=== PATIENT | female | born 1940 | race Caucasian/White ===

== ENCOUNTER → 2017-02-03 | Outpatient (CLI) | payer MEDICARE ==
[2017-02-03 13:43] LABS: BASO % 0.4 % (0.0-1.0); EOS # 0.2 K/mm3 (0.0-0.50); EOS % 4.2 % (0.0-3.0); LYMPH # 1.1 K/mm3 (1.5-4.5); LYMPH % 19.2 % (24.0-44.0); MEAN CORPUSCULAR HGB CONC 34.6 g/dl (32.0-36.5); MEAN CORPUSCULAR VOLUME 89.7 fl (80.0-96.0); MONO # 0.3 K/mm3 (0.0-0.8); MONO % 5.4 % (0.0-5.0); NEUTROPHILS # 3.9 K/mm3 (1.8-7.7); NEUTROPHILS % 68.9 % (36.0-66.0); RED CELL DISTRIBUTION WIDTH 12.4 % (11.5-14.5); WHITE BLOOD COUNT 5.6 K/mm3 (4.0-10.0)
[2017-02-03 14:04] LABS: ALBUMIN/GLOBULIN RATIO 1.05 (1.00-1.93); ALKALINE PHOSPHATASE 57 U/L (45-117); ALT/SGPT 18 U/L (12-78); ANION GAP 8 MEQ/L (8-16); AST/SGOT 18 U/L (15-37); BILIRUBIN,TOTAL 0.5 MG/DL (0.2-1.0); BLOOD UREA NITROGEN 24 MG/DL (7-18); CALCIUM LEVEL 9.5 MG/DL (8.8-10.2); CARBON DIOXIDE LEVEL 27 MEQ/L (21-32); CHLORIDE LEVEL 107 MEQ/L (98-107); CHOLESTEROL LEVEL 243 MG/DL (<200); CREATININE FOR GFR 1.38 MG/DL (0.55-1.02); FERRITIN 82 NG/ML (8-252); GLOMERULAR FILTRATION RATE 39.8 (>39); GLUCOSE, FASTING 128 MG/DL (83-110); POTASSIUM SERUM 3.9 MEQ/L (3.5-5.1); SODIUM LEVEL 142 MEQ/L (136-145); THYROXINE (T4) 10.2 UG/DL (4.5-12.0); TOTAL PROTEIN 7.8 GM/DL (6.4-8.2); TRIGLYCERIDES LEVEL 198 MG/DL (<150)
[2017-02-04 14:56] LABS: ALBUMIN 4.63 GM/DL (3.29-5.55); ALBUMIN % 59.3 % (55.8-66.1); GAMMA GLOBULIN % 16.1 % (11.1-18.8)
[2017-02-06 00:07] LABS: Lyme Disease IgG Ab 18 kDa Ban Present (.); Lyme Disease IgG Ab 23 kDa Ban Present (.); Lyme Disease IgG Ab 28 kDa Ban Absent (.); Lyme Disease IgG Ab 30 kDa Ban Absent (.); Lyme Disease IgG Ab 39 kDa Ban Present (.); Lyme Disease IgG Ab 41 kDa Ban Present (.); Lyme Disease IgG Ab 45 kDa Ban Absent (.); Lyme Disease IgG Ab 58 kDa Ban Absent (.); Lyme Disease IgG Ab 66 kDa Ban Absent (.); Lyme Disease IgG Ab 93 kDa Ban Absent (.); Lyme Disease IgG West Blot Int Negative (.); Lyme Disease IgG/IgM Antibodie 1.51 ISR (0.00-0.90); Lyme Disease IgM Ab 23 kDa Ban Present (.); Lyme Disease IgM Ab 39 kDa Ban Absent (.); Lyme Disease IgM Ab 41 kDa Ban Absent (.); Lyme Disease IgM Ab Quantitati 1.16 index (0.00-0.79); Lyme Disease IgM West Blot Int Negative (.); T3 RESIN UPTAKE 28 % (24-39)
== END ==
LOC: M WUC 08:30
PROVIDERS: ATTEND Physician Assistant Medical
DX: E11.9 Type 2 diabetes mellitus without complications (principal); R53.83 Other fatigue; Z79.01 Long term (current) use of anticoagulants

== ENCOUNTER → 2017-05-05 | Outpatient (CLI) | payer MEDICARE ==
[2017-05-05 13:01] LABS: BASO # 0.1 10^3/uL (0.0-0.2); BASO % 1.2 % (0.0-1.0); EOS # 0.2 10^3/uL (0.0-0.50); EOS % 3.3 % (0.0-3.0); IMMATURE GRANULOCYTE % 0.5 % (0-0); LYMPH # 1.3 10^3/uL (1.5-4.5); LYMPH % 23.1 % (24.0-44.0); MEAN CORPUSCULAR HEMOGLOBIN 30.3 pg (27.0-33.0); MEAN CORPUSCULAR HGB CONC 33.7 g/dl (32.0-36.5); MONO # 0.5 10^3/uL (0.0-0.8); MONO % 8.9 % (0.0-5.0); NEUTROPHILS # 3.6 10^3/uL (1.8-7.7); PLATELET COUNT, AUTOMATED 222 10^3/uL (150-450); WHITE BLOOD COUNT 5.8 10^3/uL (4.0-10.0)
[2017-05-05 13:34] LABS: ALBUMIN 4.1 GM/DL (3.2-5.2); ALBUMIN/GLOBULIN RATIO 1.05 (1.00-1.93); BILIRUBIN,TOTAL 0.4 MG/DL (0.2-1.0); CALCIUM LEVEL 9.6 MG/DL (8.8-10.2); CREATININE FOR GFR 1.56 MG/DL (0.55-1.02); GLOMERULAR FILTRATION RATE 34.4 (>39); POTASSIUM SERUM 4.3 MEQ/L (3.5-5.1)
== END ==
LOC: M WUC 08:35
PROVIDERS: ATTEND Physician Assistant Medical
DX: E11.9 Type 2 diabetes mellitus without complications (principal)

== ENCOUNTER → 2017-07-31 | Outpatient (CLI) | payer MEDICARE ==
[2017-07-31 14:25] LABS: ALBUMIN 4.1 GM/DL (3.2-5.2); ALBUMIN/GLOBULIN RATIO 1.05 (1.00-1.93); ALKALINE PHOSPHATASE 73 U/L (45-117); ALT/SGPT 28 U/L (12-78); ANION GAP 8 MEQ/L (8-16); AST/SGOT 22 U/L (7-37); BILIRUBIN,TOTAL 0.6 MG/DL (0.2-1.0); BLOOD UREA NITROGEN 20 MG/DL (7-18); CALCIUM LEVEL 9.6 MG/DL (8.8-10.2); CARBON DIOXIDE LEVEL 30 MEQ/L (21-32); CHLORIDE LEVEL 104 MEQ/L (98-107); CHOLESTEROL LEVEL 220 MG/DL (<200); CHOLESTEROL RISK RATIO 3.859 (<5); CREATININE FOR GFR 1.29 MG/DL (0.55-1.30); GLOMERULAR FILTRATION RATE 42.9 (>39); GLUCOSE, FASTING 117 MG/DL (70-100); HDL CHOLESTEROL 57 MG/DL (>40); NON-HDL-C 163 MG/DL; POTASSIUM SERUM 3.9 MEQ/L (3.5-5.1); SODIUM LEVEL 142 MEQ/L (136-145); TRIGLYCERIDES LEVEL 145 MG/DL (<150)
== END ==
LOC: M WUC 08:41
DX: E78.2 Mixed hyperlipidemia (principal)
CPT/HCPCS: 80053

== ENCOUNTER → 2017-12-25 | Outpatient (CLI) | payer MEDICARE ==
[2017-12-25 13:09] LABS: BASO # 0.1 10^3/uL (0.0-0.2); BASO % 1.1 % (0.0-1.0); EOS # 0.2 10^3/uL (0.0-0.50); EOS % 3.7 % (0.0-3.0); HEMATOCRIT 37.7 % (36.0-47.0); HEMOGLOBIN 13.1 g/dl (12.0-15.5); IMMATURE GRANULOCYTE % 0.2 % (0-3.0); LYMPH # 1.2 10^3/uL (1.5-4.5); LYMPH % 22.4 % (24.0-44.0); MEAN CORPUSCULAR HEMOGLOBIN 30.8 pg (27.0-33.0); MEAN CORPUSCULAR HGB CONC 34.7 g/dl (32.0-36.5); MEAN CORPUSCULAR VOLUME 88.5 fl (80.0-96.0); MONO # 0.6 10^3/uL (0.0-0.8); MONO % 11.4 % (0.0-5.0); NEUTROPHILS # 3.3 10^3/uL (1.8-7.7); NEUTROPHILS % 61.2 % (36.0-66.0); PLATELET COUNT, AUTOMATED 198 10^3/uL (150-450); RED BLOOD COUNT 4.26 10^6/uL (4.00-5.40); RED CELL DISTRIBUTION WIDTH 11.9 % (11.5-14.5); WHITE BLOOD COUNT 5.4 10^3/uL (4.0-10.0)
[2017-12-25 13:24] LABS: TOTAL 25(OH) VITAMIN D 22.5 NG/ML (30.0-100.0)
[2017-12-25 13:27] LABS: ALBUMIN/GLOBULIN RATIO 1.03 (1.00-1.93); ALKALINE PHOSPHATASE 65 U/L (45-117); ALT/SGPT 22 U/L (12-78); ANION GAP 7 MEQ/L (8-16); AST/SGOT 19 U/L (7-37); BILIRUBIN,TOTAL 0.4 MG/DL (0.2-1.0); BLOOD UREA NITROGEN 28 MG/DL (7-18); CALCIUM LEVEL 9.2 MG/DL (8.8-10.2); CARBON DIOXIDE LEVEL 28 MEQ/L (21-32); CHLORIDE LEVEL 103 MEQ/L (98-107); CHOLESTEROL LEVEL 197 MG/DL (<200); CHOLESTEROL RISK RATIO 4.804 (<5); CREATININE FOR GFR 1.71 MG/DL (0.55-1.30); FREE T4 1.05 NG/DL (0.76-1.46); GLUCOSE, FASTING 133 MG/DL (70-100); HDL CHOLESTEROL 41 MG/DL (>40); LDL CHOLESTEROL 99.8 MG/DL (<100); NON-HDL-C 156 MG/DL; POTASSIUM SERUM 4.3 MEQ/L (3.5-5.1); SODIUM LEVEL 138 MEQ/L (136-145); TOTAL PROTEIN 7.9 GM/DL (6.4-8.2); TRIGLYCERIDES LEVEL 281 MG/DL (<150)
[2017-12-25 13:46] LABS: ESTIMATED AVERAGE GLUCOSE 160 MG/DL (60-110); HEMOGLOBIN A1c 7.2 %
== END ==
LOC: M WUC 08:58
DX: I10 Essential (primary) hypertension (principal); E55.9 Vitamin D deficiency, unspecified; E78.00 Pure hypercholesterolemia, unspecified; Z79.899 Other long term (current) drug therapy
CPT/HCPCS: 84443

== ENCOUNTER → 2018-03-27 | Outpatient (CLI) | payer MEDICARE ==
[2018-03-27 09:07] LABS: BASO % 0.6 % (0.0-1.0); EOS # 0.2 10^3/uL (0.0-0.50); EOS % 3.8 % (0.0-3.0); HEMATOCRIT 38.4 % (36.0-47.0); HEMOGLOBIN 13.4 g/dl (12.0-15.5); IMMATURE GRANULOCYTE % 0.3 % (0-3.0); LYMPH # 1.3 10^3/uL (1.5-4.5); LYMPH % 21.1 % (24.0-44.0); MEAN CORPUSCULAR HEMOGLOBIN 31.1 pg (27.0-33.0); MEAN CORPUSCULAR HGB CONC 34.9 g/dl (32.0-36.5); MEAN CORPUSCULAR VOLUME 89.1 fl (80.0-96.0); MONO # 0.7 10^3/uL (0.0-0.8); MONO % 11.7 % (0.0-5.0); NEUTROPHILS # 3.9 10^3/uL (1.8-7.7); NEUTROPHILS % 62.5 % (36.0-66.0); PLATELET COUNT, AUTOMATED 202 10^3/uL (150-450); RED BLOOD COUNT 4.31 10^6/uL (4.00-5.40); RED CELL DISTRIBUTION WIDTH 11.9 % (11.5-14.5); WHITE BLOOD COUNT 6.3 10^3/uL (4.0-10.0)
[2018-03-27 09:23] LABS: ESTIMATED AVERAGE GLUCOSE 140 MG/DL (60-110); HEMOGLOBIN A1c 6.5 %
[2018-03-27 09:45] LABS: ALBUMIN 4.1 GM/DL (3.2-5.2); ALBUMIN/GLOBULIN RATIO 1.14 (1.00-1.93); ALKALINE PHOSPHATASE 63 U/L (45-117); ALT/SGPT 22 U/L (12-78); ANION GAP 6 MEQ/L (8-16); AST/SGOT 18 U/L (7-37); BILIRUBIN,TOTAL 0.4 MG/DL (0.2-1.0); BLOOD UREA NITROGEN 21 MG/DL (7-18); CALCIUM LEVEL 9.8 MG/DL (8.8-10.2); CARBON DIOXIDE LEVEL 28 MEQ/L (21-32); CHLORIDE LEVEL 107 MEQ/L (98-107); CHOLESTEROL LEVEL 194 MG/DL (<200); CREATININE FOR GFR 1.31 MG/DL (0.55-1.30); FREE T4 1.05 NG/DL (0.76-1.46); GLOMERULAR FILTRATION RATE 42.1 (>39); GLUCOSE, FASTING 109 MG/DL (70-100); HDL CHOLESTEROL 50 MG/DL (>40); LDL CHOLESTEROL 110 MG/DL (<100); NON-HDL-C 144 MG/DL; POTASSIUM SERUM 4.8 MEQ/L (3.5-5.1); SODIUM LEVEL 141 MEQ/L (136-145); TOTAL PROTEIN 7.7 GM/DL (6.4-8.2); TRIGLYCERIDES LEVEL 169 MG/DL (<150)
[2018-03-27 12:43] LABS: TOTAL 25(OH) VITAMIN D 39.2 NG/ML (30.0-100.0)
== END ==
LOC: M WUC 08:13
DX: Z51.81 Encounter for therapeutic drug level monitoring (principal); Z79.899 Other long term (current) drug therapy; I10 Essential (primary) hypertension; E11.9 Type 2 diabetes mellitus without complications; E78.2 Mixed hyperlipidemia; E55.9 Vitamin D deficiency, unspecified; R53.83 Other fatigue
CPT/HCPCS: 84443

== ENCOUNTER → 2019-07-28 | Outpatient (CLI) | payer MEDICARE | LOC: M WHC 15:09 | PROVIDERS: ATTEND Internal Medicine Cardiovascular Disease | DX: M81.0 Age-related osteoporosis without current pathological fracture (principal) ==

== ENCOUNTER → 2021-07-02 | Outpatient (REF) | payer MEDICARE ==
[2021-07-02 18:28] LABS: APPEARANCE, URINE HAZY (CLEAR); BACTERIA, URINE AUTO 1+ (NEGATIVE); BILIRUBIN, URINE AUTO NEGATIVE (NEGATIVE); BLOOD, URINE BLOOD NEGATIVE (NEGATIVE); COLOR, URINE YELLOW (YELLOW); GLUCOSE, URINE (UA) AUTO NEGATIVE (NEGATIVE); KETONE, URINE AUTO TRACE mg/dL (NEGATIVE); LEUKOCYTE ESTERASE, URINE AUTO 2+ (NEGATIVE); MUCUS, URINE SMALL (NEGATIVE); NITRITE, URINE AUTO NEGATIVE (NEGATIVE); PROTEIN, URINE AUTO NEGATIVE (NEGATIVE); RBC, URINE AUTO 1 /HPF (0-3); SPECIFIC GRAVITY URINE AUTO 1.018 (1.002-1.035); SQUAMOUS EPITHELIAL CELL UR AU 1 /HPF (0-6); UROBILINOGEN, URINE AUTO 0.2 mg/dL (0.0-2.0); WBC, URINE AUTO 20 /HPF (0-3)
== END ==
LOC: M SMT 16:49
PROVIDERS: ATTEND Physician Assistant
DX: N39.0 Urinary tract infection, site not specified (principal)
CPT/HCPCS: 51798; 81001; 87088; 87186; G0463

== ENCOUNTER → 2023-09-16 | Outpatient (REF) | payer MEDICARE ==
[~2023-09-16] MED LIST: CARV12.5; CHLO125TA; CLON-412; EZET10TA21; FENO145T7; HYDR50TA46; INDA25TAB; LABE20TAB; MULT1TAB16 PO; OCUVTAB4 PO; VALS1TAB68; VALS320T3; VITA500T40
== END ==
LOC: M SFHCDERM 17:45
PROVIDERS: ATTEND Physician Assistant
DX: D04.39 Carcinoma in situ of skin of other parts of face (principal); L57.8 Other skin changes due to chronic exposure to nonionizing radiation

== ENCOUNTER → 2024-01-13 | Outpatient (REF) | payer MEDICARE ==
[~2024-01-13] MED LIST changes: -CARV12.5; +CARV12.5 PO; +CENT1TAB9 PO; -EZET10TA21; +EZET10TA21 PO; +FARX1TAB3 PO; +FURO20TA2 PO; +HYDR25TA87 PO; +IBUP-1720 PO; +INDA2.5T2; -INDA25TAB; +METO25TA PO; +POTA-150 PO; +VALS1TAB68 PO; -VALS320T3; +VALS320T3 PO; -VITA500T40; +VITA500T40 PO
== END ==
LOC: M SFHCDERM 17:46
PROVIDERS: ATTEND Physician Assistant
DX: Z86.007 Personal history of in-situ neoplasm of skin (principal)

== ENCOUNTER → 2024-01-14 | Outpatient (REF) | payer MEDICARE | LOC: M SFHCDERM 08:23 | PROVIDERS: ATTEND Physician Assistant | DX: Z86.007 Personal history of in-situ neoplasm of skin (principal) ==

== ENCOUNTER → 2024-07-17 | Outpatient (REF) | payer MEDICARE ==
[~2024-07-17] MED LIST changes: +AMIO200T37; +ASPI-255; +ATOR40TA75
== END ==
LOC: M LAB REF 17:29
PROVIDERS: ATTEND Physician Assistant Medical
DX: B34.9 Viral infection, unspecified (principal)

== ENCOUNTER 2024-08-03 05:46 | Inpatient (IN) | payer MEDICARE ==
[~2024-08-03] VITALS: Ht 157.5 cm; Wt 57.9 kg
[2024-08-03] VITALS (51 sets, daily range): BP systolic 125–208; BP diastolic 58–98; TEMP 97.6–97.9; O2SAT 90–98
[~2024-08-03 05:46] MED LIST changes: -AMIO200T37; +AMIO200T37 PO; -ASPI-255; +ASPI-255 PO; -ATOR40TA75; +ATOR40TA75 PO
[2024-08-03] MEDS ORDERED: NITROGLYCERIN 0.4MG SUBL TABLET As Ordered ONE (05:53)
[2024-08-03] MEDS ORDERED: ONDANSETRON 4MG 2ML VIAL As Ordered ONE (05:56)
[2024-08-03] MEDS: ONDANSETRON 4MG 2ML VIAL IV ONE (05:58)
[2024-08-03] MEDS: NITROGLYCERIN 0.4MG SUBL TABLET SL PRN (05:58)
[2024-08-03] MEDS ORDERED: NITROGLYCERIN 0.4MG SUBL TABLET SL PRN (06:00)
[2024-08-03] MEDS: FUROSEMIDE 100MG/10ML VIAL IV ONE (06:14)
[2024-08-03] MEDS: ASPIRIN 81MG CHEW TABLET PO ONE (06:14)
[2024-08-03] MEDS: NITROGLYCERIN/D5W 100MCG/ML 25 MG in IV 1 EA IV SCH ×2 (06:16→13:22)
[2024-08-03 06:17] LABS: VENOUS BASE EXCESS -5.3 (-2.0-2.0); VENOUS HCO3 20.5 MMOL/L (23.0-27.0); VENOUS O2 SATURATION 80.2 % (60.0-80.0); VENOUS PARTIAL PRESSURE CO2 40.7 mmHg (38.0-50.0); VENOUS PARTIAL PRESSURE O2 49.1 mmHg (30.0-50.0); VENOUS PH 7.319 UNITS (7.330-7.430); VENOUS STANDARD HCO3 19.8 MMOL/L; VENOUS TOTAL CO2 21.7 MMOL/L (24.0-28.0)
[2024-08-03] MEDS ORDERED: ISOVUE-370 76% 100ML VIAL As Ordered ONE (06:17)
[2024-08-03 06:22] LABS: BASO # 0.1 10^3/uL (0.0-0.2); BASO % 0.8 % (0.0-1.0); EOS # 0.3 10^3/uL (0.0-0.5); EOS % 3.1 % (0.0-3.0); HEMATOCRIT 40.7 % (36.0-47.0); HEMOGLOBIN 13.4 g/dl (12.0-15.5); LYMPH # 0.9 10^3/uL (1.5-5.0); LYMPH % 8.5 % (24.0-44.0); MEAN CORPUSCULAR HEMOGLOBIN 30.5 pg (27.0-33.0); MEAN CORPUSCULAR HGB CONC 32.9 g/dl (32.0-36.5); MEAN CORPUSCULAR VOLUME 92.5 fl (80.0-96.0); MONO # 0.7 10^3/uL (0.0-0.8); MONO % 6.7 % (2.0-8.0); NEUTROPHILS # 8.3 10^3/uL (1.5-8.5); NEUTROPHILS % 80.3 % (36.0-66.0); PLATELET COUNT, AUTOMATED 191 10^3/uL (150-450); WHITE BLOOD COUNT 10.4 10^3/uL (4.0-10.0)
[2024-08-03 06:23] LABS: ABG BASE EXCESS -4.1 (-2.0-2.0); ABG HCO3 20.9 MMOL/L (22.0-26.0); ABG O2 SATURATION 93.1 % (95.0-99.0); ABG PARTIAL PRESSURE CO2 38.1 mmHg (35.0-45.0); ABG PARTIAL PRESSURE O2 71.8 mmHg (75.0-100.0); ABG TOTAL CO2 22.1 MMOL/L (23.0-31.0); ABG pH (ARTERIAL) 7.357 UNITS (7.350-7.450)
[2024-08-03 06:40] LABS: INR 0.93; PROTHROMBIN TIME 12.8 SECONDS (12.5-14.5)
[2024-08-03 06:55] LABS: CK-MB VALUE MASS 2.1 NG/ML (<3.6)
[2024-08-03 06:57] LABS: MB/CK RELATIVE INDEX 3.33 (< OR =4)
[2024-08-03 06:58] LABS: ALBUMIN 3.5 G/DL (3.2-5.2); BILIRUBIN,DIRECT 0.2 MG/DL (<0.4); BILIRUBIN,TOTAL 0.5 MG/DL (0.3-1.2); CALCIUM LEVEL 9.1 MG/DL (8.3-10.6); CREATININE FOR GFR 1.34 MG/DL (0.55-1.30); GLOMERULAR FILTRATION RATE 40.3 (>32); POTASSIUM SERUM 3.9 MMOL/L (3.5-5.1); TOTAL PROTEIN 6.7 G/DL (5.7-8.2)
[2024-08-03 08:12] LABS: CK-MB VALUE MASS 1.5 NG/ML (<3.6)
[2024-08-03 08:25] LABS: PROCALCITONIN 0.09 ng/ml
[2024-08-03 08:27] LABS: MB/CK RELATIVE INDEX 2.3 (< OR =4)
[2024-08-03] MEDS ORDERED: ALBUTEROL SULFATE 2.5MG/0.5ML INH NEB SOLN NEB PRN (09:25)
[2024-08-03] MEDS ORDERED: ACETAMINOPHEN 325 MG TAB PO PRN (09:35)
[2024-08-03 09:54] LABS: CK-MB VALUE MASS 1.4 NG/ML (<3.6)
[2024-08-03 10:02] LABS: MB/CK RELATIVE INDEX 2.18 (< OR =4)
[2024-08-03] MEDS ORDERED: VALS1TAB68 PO (10:06)
[2024-08-03] MEDS ORDERED: CLONI1TA PO (10:06)
[2024-08-03] MEDS ORDERED: FURO20TA2 PO (10:06)
[2024-08-03] MEDS ORDERED: FARX1TAB3 PO (10:06)
[2024-08-03] MEDS ORDERED: THERTAB52 PO (10:06)
[2024-08-03] MEDS ORDERED: HOME MED LIST COMPLETE! XX SCH (10:10)
[2024-08-03] MEDS: FUROSEMIDE 100MG/10ML VIAL IV SCH (12:16)
[2024-08-03] MEDS: AMIODARONE 200 MG TAB (PACERONE) PO SCH (12:16)
[2024-08-03] MEDS: HEPARIN SOD (PORCINE) 5000UNITS/ML 1ML VIAL/SYRINGE SC SCH (12:16)
[2024-08-03] MEDS ORDERED: DEXTROSE 50% 50ML SYRINGE IV PRN (14:25)
[2024-08-03] MEDS ORDERED: GLUCAGON INJ 1MG VIAL SC PRN (14:25)
[2024-08-03] MEDS ORDERED: GLUCOSE 4 GM CHEW PO PRN (14:25)
[2024-08-03] MEDS: VALSARTAN 80 MG TAB (DIOVAN) PO SCH (15:02)
[2024-08-03] MEDS: amLODIPine 5 MG TAB PO SCH (15:03)
[2024-08-03] MEDS: INSULIN LISPRO (NovoLOG) PER UNIT SC SCH ×2 (17:22→20:33)
[2024-08-03] MEDS ORDERED: FUROSEMIDE 100MG/10ML VIAL IV SCH (18:00)
[2024-08-03 19:40] LABS: CALCIUM LEVEL 8.9 MG/DL (8.3-10.6); CREATININE FOR GFR 1.45 MG/DL (0.55-1.30); GLOMERULAR FILTRATION RATE 36.8 (>32); MAGNESIUM LEVEL 2.1 MG/DL (1.8-2.4); POTASSIUM SERUM 3.5 MMOL/L (3.5-5.1)
[2024-08-04] VITALS (31 sets, daily range): BP systolic 131–197; BP diastolic 60–99; TEMP 97.6–98.5; O2SAT 92–99
[2024-08-04] MEDS: POTASSIUM CHLORIDE 10% LIQ 20MEQ/15ML UDC PO ONE (00:50)
[2024-08-04 04:48] LABS: HEMATOCRIT 35.3 % (36.0-47.0); HEMOGLOBIN 11.9 g/dl (12.0-15.5); MEAN CORPUSCULAR HEMOGLOBIN 30.1 pg (27.0-33.0); MEAN CORPUSCULAR HGB CONC 33.7 g/dl (32.0-36.5); MEAN CORPUSCULAR VOLUME 89.4 fl (80.0-96.0); PLATELET COUNT, AUTOMATED 165 10^3/uL (150-450); RED BLOOD COUNT 3.95 10^6/uL (4.00-5.40); WHITE BLOOD COUNT 12.7 10^3/uL (4.0-10.0)
[2024-08-04 05:38] LABS: ALBUMIN 3.3 G/DL (3.2-5.2); BILIRUBIN,TOTAL 0.5 MG/DL (0.3-1.2); CREATININE FOR GFR 1.41 MG/DL (0.55-1.30); MAGNESIUM LEVEL 2.3 MG/DL (1.8-2.4); POTASSIUM SERUM 3.3 MMOL/L (3.5-5.1); TOTAL PROTEIN 6.1 G/DL (5.7-8.2)
[2024-08-04] MEDS: ASPIRIN 325 MG TAB PO ONE (08:07)
[2024-08-04] MEDS: **hydrALAZINE HCL** 25 MG TAB PO SCH (08:09)
[2024-08-04] MEDS: FUROSEMIDE 20MG/2ML VIAL IV SCH (08:10)
[2024-08-04] MEDS ORDERED: amLODIPine 5 MG TAB PO SCH (09:00)
[2024-08-04] MEDS ORDERED: VALSARTAN 80 MG TAB (DIOVAN) PO SCH (09:00)
[2024-08-04 12:25] LABS: CALCIUM LEVEL 9.3 MG/DL (8.3-10.6); CREATININE FOR GFR 1.32 MG/DL (0.55-1.30); POTASSIUM SERUM 3.8 MMOL/L (3.5-5.1)
[2024-08-04] MEDS: cloNIDine 0.1MG TABLET PO SCH (13:09)
[2024-08-04] MEDS: FUROSEMIDE 40MG/4ML VIAL IV SCH (21:25)
[2024-08-05] VITALS: BP 141/65; TEMP 98.2; O2SAT 98
[2024-08-05 04:00] VITALS: BP 143/73; TEMP 98; O2SAT 96
[2024-08-05 05:21] LABS: HEMATOCRIT 37.7 % (36.0-47.0); HEMOGLOBIN 12.6 g/dl (12.0-15.5); MEAN CORPUSCULAR HEMOGLOBIN 30.2 pg (27.0-33.0); MEAN CORPUSCULAR HGB CONC 33.4 g/dl (32.0-36.5); MEAN CORPUSCULAR VOLUME 90.4 fl (80.0-96.0); PLATELET COUNT, AUTOMATED 176 10^3/uL (150-450); RED BLOOD COUNT 4.17 10^6/uL (4.00-5.40); WHITE BLOOD COUNT 10.1 10^3/uL (4.0-10.0)
[2024-08-05 05:24] LABS: APPEARANCE, URINE CLEAR (CLEAR); BACTERIA, URINE AUTO 2+ (NEGATIVE); BILIRUBIN, URINE AUTO NEGATIVE (NEGATIVE); BLOOD, URINE BLOOD NEGATIVE (NEGATIVE); COLOR, URINE YELLOW (YELLOW); GLUCOSE, URINE (UA) AUTO NEGATIVE (NEGATIVE); KETONE, URINE AUTO NEGATIVE (NEGATIVE); LEUKOCYTE ESTERASE, URINE AUTO 1+ (NEGATIVE); NITRITE, URINE AUTO POSITIVE (NEGATIVE); PROTEIN, URINE AUTO NEGATIVE (NEGATIVE); RBC, URINE AUTO 0 /HPF (0-3); SPECIFIC GRAVITY URINE AUTO 1.009 (1.002-1.035); SQUAMOUS EPITHELIAL CELL UR AU 0 /HPF (0-6); UROBILINOGEN, URINE AUTO 0.2 mg/dL (0.0-2.0); WBC, URINE AUTO 11 /HPF (0-3)
[2024-08-05 05:52] LABS: ALBUMIN 3.7 G/DL (3.2-5.2); BILIRUBIN,TOTAL 0.7 MG/DL (0.3-1.2); CALCIUM LEVEL 9.8 MG/DL (8.3-10.6); CREATININE FOR GFR 1.42 MG/DL (0.55-1.30); GLOMERULAR FILTRATION RATE 37.7 (>32); MAGNESIUM LEVEL 2.2 MG/DL (1.8-2.4); POTASSIUM SERUM 3.7 MMOL/L (3.5-5.1); TOTAL PROTEIN 6.9 G/DL (5.7-8.2)
[2024-08-05 08:00] VITALS: BP 173/75; TEMP 98; O2SAT 96
[2024-08-05 08:30] VITALS: BP 173/75
[2024-08-05] MEDS: EZETIMIBE 10MG TABLET (ZETIA) PO SCH (08:31)
[2024-08-05] MEDS: ATORVASTATIN 20 MG TAB PO SCH (08:31)
[2024-08-05] MEDS: ASPIRIN ENTERIC 325MG TAB PO SCH (08:32)
[2024-08-05 12:01] VITALS: BP 114/58; TEMP 97.9; O2SAT 95
[2024-08-05] MEDS ORDERED: FURO40TA2 PO (13:42)
[2024-08-05] MEDS ORDERED: HYDR50TA46 PO (13:42)
[2024-08-05] MEDS ORDERED: **hydrALAZINE** 50 MG TAB PO SCH ×2 (16:00→21:00)
[2024-08-06] MEDS ORDERED: FUROSEMIDE 40 MG TAB PO SCH (09:00)
== END 2024-08-05 15:05 | disposition home or self-care (01) | DRG 291 ==
LOC: EDBD 05:46 → M ED 05:46 → M ED INP 08:57 → M ICU 10:47
PROVIDERS: ADMIT Internal Medicine Pulmonary Disease; ATTEND Student in an Organized Health Care Education/Training Program
DX: I13.0 Hypertensive heart and chronic kidney disease with heart failure and stage 1 through stage 4 chronic kidney disease, or unspecified chronic kidney disease (principal); J96.01 Acute respiratory failure with hypoxia; I50.33 Acute on chronic diastolic (congestive) heart failure; I16.1 Hypertensive emergency; N17.9 Acute kidney failure, unspecified; N18.9 Chronic kidney disease, unspecified; E78.5 Hyperlipidemia, unspecified; I25.10 Atherosclerotic heart disease of native coronary artery without angina pectoris; Z95.2 Presence of prosthetic heart valve; J47.9 Bronchiectasis, uncomplicated; Z87.891 Personal history of nicotine dependence; Z88.2 Allergy status to sulfonamides; Z88.8 Allergy status to other drugs, medicaments and biological substances; Z79.899 Other long term (current) drug therapy; I48.0 Paroxysmal atrial fibrillation

== ENCOUNTER 2025-04-21 14:04 | Inpatient (IN) | payer MEDICARE ==
[~2025-04-21] VITALS: Ht 160 cm; Wt 55.8 kg
[~2025-04-21 14:04] MED LIST changes: +CLONI1TA PO; -EZET10TA21 PO; +EZET10TA57 PO; +FURO40TA2 PO; +HYDR50TA46 PO; +THERTAB52 PO
[2025-04-21] MEDS ORDERED: CLON-412 (14:22)
[2025-04-21] MEDS ORDERED: CARV6.25 (14:22)
[2025-04-21] MEDS ORDERED: DULO1CAP5 (14:22)
[2025-04-21] MEDS ORDERED: BUME1TAB3 PO (14:22)
[2025-04-21] MEDS ORDERED: GABA-1171 (14:22)
[2025-04-21] MEDS ORDERED: POTA-298 (14:22)
[2025-04-21 14:49] LABS: VENOUS BASE EXCESS 1.5 (-2.0-2.0); VENOUS HCO3 25.7 MMOL/L (23.0-27.0); VENOUS O2 SATURATION 67.1 % (60.0-80.0); VENOUS PARTIAL PRESSURE CO2 39.1 mmHg (38.0-50.0); VENOUS PARTIAL PRESSURE O2 34.3 mmHg (30.0-50.0); VENOUS PH 7.436 UNITS (7.330-7.430); VENOUS STANDARD HCO3 25.1 MMOL/L; VENOUS TOTAL CO2 26.9 MMOL/L (24.0-28.0)
[2025-04-21 14:52] LABS: BASO # 0.1 10^3/uL (0.0-0.2); BASO % 0.9 % (0.0-1.0); EOS # 0.1 10^3/uL (0.0-0.5); EOS % 1.4 % (0.0-3.0); LYMPH # 0.9 10^3/uL (1.5-5.0); LYMPH % 11.4 % (24.0-44.0); MONO # 0.9 10^3/uL (0.0-0.8); MONO % 11.5 % (2.0-8.0); NEUTROPHILS # 5.8 10^3/uL (1.5-8.5); NEUTROPHILS % 74.4 % (36.0-66.0); PLATELET COUNT, AUTOMATED 170 10^3/uL (150-450)
[2025-04-21 15:24] LABS: ALT/SGPT 92.0 U/L (7.0-40); AST/SGOT 114.0 U/L (<34); CALCIUM LEVEL 9.5 MG/DL (8.3-10.6); CARBON DIOXIDE LEVEL 25.0 MMOL/L (20-31); CHLORIDE LEVEL 102.0 MMOL/L (98-107); CK-MB VALUE MASS 1.2 NG/ML (<3.6); CPK CREATINE PHOSPHOKINASE 61.0 U/L (34-145); CREATININE FOR GFR 1.23 MG/DL (0.55-1.30); GLOMERULAR FILTRATION RATE 43.6 (>32); MB/CK RELATIVE INDEX 1.96 (< OR =4); POTASSIUM SERUM 3.9 MMOL/L (3.5-5.1); SODIUM LEVEL 138.0 MMOL/L (136-145)
[2025-04-21 15:26] LABS: THYROXINE (T4) 10.5 UG/DL (4.5-10.9)
[2025-04-21] MEDS ORDERED: ISOVUE-370 76% 100 ML VIAL As Ordered ONE (16:04)
[2025-04-21] MEDS: NITROGLYCERIN 2% OINT 1 GM *U/D* PKT TOP ONE (16:35)
[2025-04-21 16:37] LABS: CK-MB VALUE MASS 1.5 NG/ML (<3.6)
[2025-04-21 16:38] LABS: CPK CREATINE PHOSPHOKINASE 50.0 U/L (34-145); MB/CK RELATIVE INDEX 3.0 (< OR =4)
[2025-04-21] MEDS: FUROSEMIDE 40 MG/4 ML VIAL IV ONE ×2 (17:56→20:54)
[2025-04-21 18:29] LABS: KETONE, URINE AUTO RFX NEGATIVE (NEGATIVE); NITRITE, URINE AUTO RFX NEGATIVE (NEGATIVE); RBC, URINE AUTO RFX 7 /HPF (0-3); SQUAM EPITHELIAL CELL UR AURFX 2 /HPF (0-6)
[2025-04-21 18:44] LABS: LEUKOCYTE ESTERASE UR AUTO RFX 3+ (NEGATIVE); WBC, URINE AUTO RFX 13 /HPF (0-3)
[2025-04-21] MEDS ORDERED: HYDR-3363 PO (19:31)
[2025-04-21] MEDS ORDERED: CALCCAP4 PO (19:31)
[2025-04-21] MEDS ORDERED: HOME MED LIST COMPLETE! XX SCH (19:35)
[2025-04-21] MEDS ORDERED: MAALOX 30 ML SUSP *UDC PO PRN (20:40)
[2025-04-21] MEDS ORDERED: MOM 30 ML SUSPENSION UDC PO PRN (20:40)
[2025-04-21] MEDS: EZETIMIBE 10 MG TABLET PO SCH (21:00)
[2025-04-21] MEDS: POTASSIUM CHLORIDE 10MEQ SR TABLET PO ONE (21:17)
[2025-04-21] MEDS: **hydrALAZINE** 50 MG TAB PO SCH (21:18)
[2025-04-21] MEDS: DOCUSATE SODIUM 100 MG CAPSULE PO SCH (21:18)
[2025-04-21] MEDS: POTASSIUM CHLORIDE 10MEQ SR TABLET PO SCH (21:19)
[2025-04-21] MEDS: GABAPENTIN 100 MG CAP PO SCH (21:19)
[2025-04-22] VITALS (9 sets, daily range): BP systolic 127–161; BP diastolic 67–72; TEMP 97.8–98.3; O2SAT 91–94
[2025-04-22] MEDS ORDERED: LABETALOL 100 MG/20 ML VIAL IV STA (05:57)
[2025-04-22 07:41] LABS: PLATELET COUNT, AUTOMATED 146 10^3/uL (150-450)
[2025-04-22 08:11] LABS: CALCIUM LEVEL 8.9 MG/DL (8.3-10.6); CARBON DIOXIDE LEVEL 27.0 MMOL/L (20-31); CHLORIDE LEVEL 104.0 MMOL/L (98-107); CREATININE FOR GFR 1.29 MG/DL (0.55-1.30); GLOMERULAR FILTRATION RATE 41.2 (>32); MAGNESIUM LEVEL 1.8 MG/DL (1.8-2.4); POTASSIUM SERUM 3.8 MMOL/L (3.5-5.1); SODIUM LEVEL 142.0 MMOL/L (136-145)
[2025-04-22] MEDS: FUROSEMIDE 100 MG/10 ML VIAL IV SCH (08:13)
[2025-04-22] MEDS: AMIODARONE 100 MG TABLET PO SCH (09:00)
[2025-04-22] MEDS: BUMETANIDE 1 MG TAB PO SCH (09:00)
[2025-04-22] MEDS: ATORVASTATIN 20 MG TAB PO SCH (09:51)
[2025-04-22] MEDS: VALSARTAN 80MG TAB PO SCH (09:51)
[2025-04-22] MEDS: PANTOPRAZOLE 40MG VIAL IV SCH (09:53)
[2025-04-23] VITALS (16 sets, daily range): BP systolic 134–144; BP diastolic 60–65; TEMP 97–98.4; O2SAT 87–96
[2025-04-23 05:54] LABS: PLATELET COUNT, AUTOMATED 160 10^3/uL (150-450)
[2025-04-23 06:19] LABS: CALCIUM LEVEL 8.8 MG/DL (8.3-10.6); CARBON DIOXIDE LEVEL 28.0 MMOL/L (20-31); CHLORIDE LEVEL 100.0 MMOL/L (98-107); CREATININE FOR GFR 1.34 MG/DL (0.55-1.30); GLOMERULAR FILTRATION RATE 39.3 (>32); MAGNESIUM LEVEL 1.8 MG/DL (1.8-2.4); POTASSIUM SERUM 3.4 MMOL/L (3.5-5.1); SODIUM LEVEL 139.0 MMOL/L (136-145)
[2025-04-23] MEDS: ENOXAPARIN 30 MG/0.3 ML SYRINGE (J1650 PER 10MG) SC SCH (09:00)
[2025-04-23] MEDS: CEFPODOXIME PROXETIL 200 MG TABLET PO SCH (09:42)
[2025-04-23] MEDS: MAG SULF 1GM/100ML (MAG RUN) 1 GM in IV 1 EA IV SCH (09:53)
[2025-04-23] MEDS: ACETAMINOPHEN 325 MG TAB PO PRN (12:37)
[2025-04-23] MEDS ORDERED: CEFP200T PO (13:46)
[2025-04-23] MEDS ORDERED: BUME1TAB3 PO (13:46)
== END 2025-04-23 16:05 | disposition home or self-care (01) | DRG 291 ==
LOC: M ED 14:04 → M ED INP 20:38 → M PCU 04-22 16:45
PROVIDERS: ADMIT Student in an Organized Health Care Education/Training Program; ATTEND Student in an Organized Health Care Education/Training Program
DX: I11.0 Hypertensive heart disease with heart failure (principal); I50.33 Acute on chronic diastolic (congestive) heart failure; N39.0 Urinary tract infection, site not specified; J47.9 Bronchiectasis, uncomplicated; Z95.1 Presence of aortocoronary bypass graft; I16.0 Hypertensive urgency; I25.10 Atherosclerotic heart disease of native coronary artery without angina pectoris; E78.5 Hyperlipidemia, unspecified; Z87.891 Personal history of nicotine dependence; Z79.899 Other long term (current) drug therapy; Z88.2 Allergy status to sulfonamides; Z88.8 Allergy status to other drugs, medicaments and biological substances

== ENCOUNTER 2025-05-11 16:08 | Emergency (ER) | payer MEDICARE ==
[~2025-05-11] VITALS: Ht 162.6 cm; Wt 56.2 kg
[~2025-05-11 16:08] MED LIST changes: +BUME1TAB3 PO; +CALCCAP4 PO; +CARV6.25; +CEFP200T PO; +DULO1CAP5; +GABA-1171; +HYDR-3363 PO; +POTA-298
[2025-05-11 16:54] LABS: BASO # 0.0 10^3/uL (0.0-0.2); BASO % 0.6 % (0.0-1.0); EOS # 0.2 10^3/uL (0.0-0.5); EOS % 3.7 % (0.0-3.0); LYMPH # 1.0 10^3/uL (1.5-5.0); LYMPH % 19.3 % (24.0-44.0); MONO # 0.9 10^3/uL (0.0-0.8); MONO % 16.9 % (2.0-8.0); NEUTROPHILS # 3.2 10^3/uL (1.5-8.5); NEUTROPHILS % 59.3 % (36.0-66.0); PLATELET COUNT, AUTOMATED 176 10^3/uL (150-450)
[2025-05-11 17:20] LABS: ALT/SGPT 32.0 U/L (7.0-40); AST/SGOT 33.0 U/L (<34); CALCIUM LEVEL 9.3 MG/DL (8.3-10.6); CARBON DIOXIDE LEVEL 31.0 MMOL/L (20-31); CHLORIDE LEVEL 96.0 MMOL/L (98-107); CREATININE FOR GFR 1.42 MG/DL (0.55-1.30); GLOMERULAR FILTRATION RATE 36.7 (>32); POTASSIUM SERUM 3.0 MMOL/L (3.5-5.1); SODIUM LEVEL 140.0 MMOL/L (136-145)
[2025-05-11] MEDS ORDERED: ISOVUE-370 76% 100 ML VIAL As Ordered ONE (18:00)
[2025-05-11] MEDS: POTASSIUM CHLORIDE 10MEQ SR TABLET PO ONE (18:42)
[2025-05-11 19:20] VITALS: BP 190/80
[2025-05-11] MEDS: NITROGLYCERIN 2% OINT 1 GM *U/D* PKT TOP ONE (19:20)
[2025-05-11] MEDS: IPRATROPIUM 0.5 MG/ALBUTEROL 2.5 MG INH SOL UD 3 ML NEB ONE (19:47)
[2025-05-11 21:44] LABS: MAGNESIUM LEVEL 2.0 MG/DL (1.8-2.4)
[2025-05-12 06:00] VITALS: TEMP 97.5
[2025-05-12 07:45] VITALS: BP 195/86; O2SAT 93
== END 2025-05-12 08:22 | disposition home or self-care (01) ==
LOC: M ED 16:08 → EDBD 16:08 → M ED 05-12 08:22
DX: R06.02 Shortness of breath (principal); I10 Essential (primary) hypertension; I50.9 Heart failure, unspecified; I51.7 Cardiomegaly; I44.0 Atrioventricular block, first degree; J43.2 Centrilobular emphysema; I44.4 Left anterior fascicular block; I45.81 Long QT syndrome; R00.1 Bradycardia, unspecified; E78.5 Hyperlipidemia, unspecified; Z79.899 Other long term (current) drug therapy; Z79.02 Long term (current) use of antithrombotics/antiplatelets; Z88.2 Allergy status to sulfonamides; Z88.8 Allergy status to other drugs, medicaments and biological substances; Z86.79 Personal history of other diseases of the circulatory system
CPT/HCPCS: 36415; 71045; 71275; 80048; 80076; 83735; 83880; 84132; 84484; 85025; 87486; 87581; 87633; 87798; 93005; 93041; 94640; 94760; 99285; Q9967

== ENCOUNTER 2025-06-16 10:40 | Inpatient (IN) | payer MEDICARE ==
[~2025-06-16] VITALS: Ht 160 cm; Wt 59.9 kg
[2025-06-16] MEDS: BUMETANIDE 1 MG TAB PO SCH (09:00)
[2025-06-16] MEDS: ACETAMINOPHEN *IV* 1,000 MG in IV 1 EA IV ONE (11:26)
[2025-06-16] MEDS: NS 500 ML IV ONE ×2 (11:26→13:54)
[2025-06-16] MEDS: MORPHINE 2 MG/ML 1 ML VIAL IV PRN ×2 (11:27→13:54)
[2025-06-16 11:29] LABS: BASO # 0.0 10^3/uL (0.0-0.2); BASO % 0.5 % (0.0-1.0); EOS # 0.3 10^3/uL (0.0-0.5); EOS % 5.6 % (0.0-3.0); LYMPH # 0.7 10^3/uL (1.5-5.0); LYMPH % 11.8 % (24.0-44.0); MONO # 0.7 10^3/uL (0.0-0.8); MONO % 12.1 % (2.0-8.0); NEUTROPHILS # 4.0 10^3/uL (1.5-8.5); NEUTROPHILS % 69.8 % (36.0-66.0); PLATELET COUNT, AUTOMATED 160 10^3/uL (150-450)
[2025-06-16] MEDS ORDERED: AMIODARONE 200 MG TAB PO STA (11:41)
[2025-06-16] MEDS ORDERED: ISOVUE-370 76% 100 ML VIAL As Ordered ONE (11:44)
[2025-06-16] MEDS ORDERED: PILL CUTTER 1 EACH XX PRN (11:50)
[2025-06-16 11:58] LABS: ALT/SGPT 37.0 U/L (7.0-40); AST/SGOT 39.0 U/L (<34); CALCIUM LEVEL 9.2 MG/DL (8.3-10.6); CARBON DIOXIDE LEVEL 29.0 MMOL/L (20-31); CHLORIDE LEVEL 102.0 MMOL/L (98-107); CK-MB VALUE MASS 3.1 NG/ML (<3.6); CREATININE FOR GFR 1.36 MG/DL (0.55-1.30); GLOMERULAR FILTRATION RATE 38.7 (>32); MAGNESIUM LEVEL 2.2 MG/DL (1.8-2.4); POTASSIUM SERUM 3.6 MMOL/L (3.5-5.1); SODIUM LEVEL 140.0 MMOL/L (136-145)
[2025-06-16 12:00] LABS: CPK CREATINE PHOSPHOKINASE 71.0 U/L (34-145); MB/CK RELATIVE INDEX 4.36 (< OR =4)
[2025-06-16] MEDS: AMIODARONE 100 MG TABLET PO STA (12:09)
[2025-06-16] MEDS: VALSARTAN 80MG TAB PO ONE (12:10)
[2025-06-16] MEDS: **hydrALAZINE** 50 MG TAB PO ONE (12:10)
[2025-06-16 13:01] LABS: KETONE, URINE AUTO RFX NEGATIVE (NEGATIVE); LEUKOCYTE ESTERASE UR AUTO RFX NEGATIVE (NEGATIVE); MUCUS, URINE RFX SMALL (NEGATIVE); NITRITE, URINE AUTO RFX NEGATIVE (NEGATIVE); RBC, URINE AUTO RFX 0 /HPF (0-3); SQUAM EPITHELIAL CELL UR AURFX 1 /HPF (0-6); WBC, URINE AUTO RFX 2 /HPF (0-3)
[2025-06-16] MEDS: PIPERACILLIN/TAZOBACTAM SOD 4.5 GM in DEXTROSE 5% (D5W) ADV/MINI-BAG 50 ML IV ONE (13:54)
[2025-06-16] MEDS ORDERED: ONDANSETRON 4MG/2ML VIAL IV PRN (15:30)
[2025-06-16] MEDS ORDERED: MORPHINE 4 MG/ML 1 ML VIAL IV PRN ×2 (15:30)
[2025-06-16] MEDS ORDERED: HYDR50TA46 PO (15:42)
[2025-06-16] MEDS ORDERED: POTA-150 PO (15:49)
[2025-06-16] MEDS ORDERED: POTA-149 PO (15:49)
[2025-06-16] MEDS ORDERED: HOME MED LIST COMPLETE! XX SCH (15:55)
[2025-06-16] MEDS ORDERED: hydrALAZINE 20 MG/ML 1 ML VIAL IV PRN (16:00)
[2025-06-16] MEDS: LR 1,000 ML IV SCH (16:09)
[2025-06-16] MEDS: PANTOPRAZOLE 40MG TAB PO SCH (16:09)
[2025-06-16] MEDS: SUCRALFATE SUSP 1GM/10ML UD PO SCH (16:58)
[2025-06-16] MEDS: **hydrALAZINE** 50 MG TAB PO SCH (16:58)
[2025-06-16 17:30] VITALS: BP 180/62; TEMP 98.4; O2SAT 97
[2025-06-16] MEDS: HYDROMORPHONE HCL 0.5 MG/0.5 ML SYRINGE IV PRN ×2 (17:40→21:35)
[2025-06-16 20:24] VITALS: BP 158/62; TEMP 98.4; O2SAT 94
[2025-06-16] MEDS: GABAPENTIN 100 MG CAP PO SCH (21:35)
[2025-06-16] MEDS: HEPARIN SOD 5000 UNITS/ML 1 ML VIAL/SYRINGE SC SCH (21:35)
[2025-06-16] MEDS: PIPERACILLIN/TAZOBACTAM SOD 3.375 GM in DEXTROSE 5% (D5W) ADV/MINI-BAG 50 ML IV SCH (21:38)
[2025-06-17 04:18] VITALS: BP 135/59; TEMP 97.9; O2SAT 94
[2025-06-17 04:20] VITALS: BP 135/59; TEMP 98.6; O2SAT 95
[2025-06-17 07:21] LABS: PLATELET COUNT, AUTOMATED 141 10^3/uL (150-450)
[2025-06-17 07:47] LABS: ALT/SGPT 28.0 U/L (7.0-40); AST/SGOT 30.0 U/L (<34); CALCIUM LEVEL 9.1 MG/DL (8.3-10.6); CARBON DIOXIDE LEVEL 27.0 MMOL/L (20-31); CHLORIDE LEVEL 102.0 MMOL/L (98-107); CREATININE FOR GFR 1.26 MG/DL (0.55-1.30); GLOMERULAR FILTRATION RATE 42.4 (>32); POTASSIUM SERUM 3.2 MMOL/L (3.5-5.1); SODIUM LEVEL 139.0 MMOL/L (136-145)
[2025-06-17] MEDS: AMIODARONE 100 MG TABLET PO SCH (09:15)
[2025-06-17] MEDS: POTASSIUM CHLORIDE 10MEQ SR TABLET PO ONE (09:18)
[2025-06-17] MEDS: VALSARTAN 80MG TAB PO SCH (10:35)
[2025-06-17 11:55] VITALS: BP 179/78; TEMP 98.2; O2SAT 94
[2025-06-17] MEDS: **hydrALAZINE HCL** 25 MG TAB PO ONE (16:11)
[2025-06-17 20:52] VITALS: BP 164/52; TEMP 98.4; O2SAT 93
[2025-06-17 22:20] VITALS: TEMP 98.9
[2025-06-18 03:56] VITALS: BP 172/64; TEMP 98.4; O2SAT 95
[2025-06-18 06:54] LABS: PLATELET COUNT, AUTOMATED 138 10^3/uL (150-450)
[2025-06-18 07:16] LABS: ALT/SGPT 26.0 U/L (7.0-40); AST/SGOT 30.0 U/L (<34); CALCIUM LEVEL 9.1 MG/DL (8.3-10.6); CARBON DIOXIDE LEVEL 27.0 MMOL/L (20-31); CHLORIDE LEVEL 103.0 MMOL/L (98-107); CREATININE FOR GFR 1.3 MG/DL (0.55-1.30); GLOMERULAR FILTRATION RATE 40.8 (>32); POTASSIUM SERUM 3.3 MMOL/L (3.5-5.1); SODIUM LEVEL 139.0 MMOL/L (136-145)
[2025-06-18] MEDS: POTASSIUM CHLORIDE 10MEQ SR TABLET PO SCH (09:20)
[2025-06-18] MEDS: MIRALAX *UNIT DOSE* 17 GM PACKET PO SCH (11:04)
[2025-06-18 12:35] VITALS: BP 176/78; TEMP 97.8; O2SAT 93
[2025-06-18] MEDS: ACETAMINOPHEN 325 MG TAB PO SCH (14:23)
[2025-06-18 15:43] VITALS: BP 148/70; TEMP 98.1; O2SAT 95
[2025-06-18 21:17] VITALS: BP 160/68; TEMP 98.5; O2SAT 94
[2025-06-18] MEDS: ONDANSETRON 4MG/2ML VIAL IV PRN (21:38)
[2025-06-19 04:09] VITALS: BP 157/75; TEMP 97.8; O2SAT 94
[2025-06-19 05:54] LABS: PLATELET COUNT, AUTOMATED 135 10^3/uL (150-450)
[2025-06-19 06:24] LABS: ALT/SGPT 25.0 U/L (7.0-40); AST/SGOT 31.0 U/L (<34); CALCIUM LEVEL 8.9 MG/DL (8.3-10.6); CARBON DIOXIDE LEVEL 27.0 MMOL/L (20-31); CHLORIDE LEVEL 105.0 MMOL/L (98-107); CREATININE FOR GFR 1.64 MG/DL (0.55-1.30); GLOMERULAR FILTRATION RATE 30.9 (>32); POTASSIUM SERUM 3.7 MMOL/L (3.5-5.1); SODIUM LEVEL 139.0 MMOL/L (136-145)
[2025-06-19 08:34] VITALS: BP 168/73
[2025-06-19] MEDS ORDERED: CIPR250T3 PO (09:37)
[2025-06-19] MEDS ORDERED: METR-265 PO (09:37)
[2025-06-19] MEDS ORDERED: OMEP40CA4 PO (09:37)
== END 2025-06-19 11:22 | disposition home or self-care (01) | DRG 392 ==
LOC: M ED 12:49 → M ED INP 14:44 → M MSPAV 17:23
PROVIDERS: ADMIT Student in an Organized Health Care Education/Training Program; ATTEND Student in an Organized Health Care Education/Training Program
DX: A09 Infectious gastroenteritis and colitis, unspecified (principal); I50.32 Chronic diastolic (congestive) heart failure; I13.0 Hypertensive heart and chronic kidney disease with heart failure and stage 1 through stage 4 chronic kidney disease, or unspecified chronic kidney disease; M79.2 Neuralgia and neuritis, unspecified; Z95.1 Presence of aortocoronary bypass graft; N18.9 Chronic kidney disease, unspecified; F41.9 Anxiety disorder, unspecified; I48.0 Paroxysmal atrial fibrillation; K80.20 Calculus of gallbladder without cholecystitis without obstruction; E87.6 Hypokalemia; Z88.2 Allergy status to sulfonamides; Z88.8 Allergy status to other drugs, medicaments and biological substances; Z79.899 Other long term (current) drug therapy